=== PATIENT | female | born 1935 | race Caucasian/White ===

== ENCOUNTER 2018-02-15 15:01 | Emergency (ER) | payer OTHER ==
--- NOTE | 2018-02-15 16:03 | RAD REPORT ---
EXAM DESCRIPTION: CT - Head Brain Wo Cont - 02/15/2018 3:55 pm CLINICAL HISTORY: Headaches COMPARISON: 2012 TECHNIQUE: Computed axial tomography of the head was obtained. IV contrast was not requested. All CT scans are performed using dose optimization technique as appropriate and may include automated exposure control or mA/KV adjustment according to patient size. FINDINGS: An intracranial bleed is not seen . The ventricles are normal in caliber. No extra-axial fluid collection is noted. Mild cerebral atrophy is seen. Fluid within the sinuses/ mastoids is not seen. IMPRESSION: No acute intracranial abnormality is seen. If patient's symptoms persist MRI of the bra in would be recommended.
--- NOTE | 2018-02-15 16:05 | RAD REPORT ---
EXAM DESCRIPTION: Mary Jo Single View02/15/2018 3:53 pm CLINICAL HISTORY: Hypertension COMPARISON: 2012 FINDINGS: The left base is hazy. The remainder of the lungs appear clear. The heart is mildly enlar ged. Pacemaker leads are in place IMPRESSION: The left base is hazy which could be secondary to a small pleural effusion, infiltrate o r overlying soft tissue
[2018-02-15 16:09] LABS: Absolute Lymphocytes (CBC) 1.2 K/uL (0.7-4.9); Absolute Monocytes 0.6 K/uL (0.1-1.3); Absolute Neutrophil 7.5 K/uL (1.8-8.0); Basophils % 1.1 % (0-1.3); Eosinophils % 0.7 % (0-4.4); Hematocrit 31.8 % (36.0-45.0); Lymphocytes % 12.5 % (15.3-44.8); MCH 24.4 pg (27.0-35.0); MCV 80.3 fL (80-100); Monocytes % 6.2 % (3.3-12.3); RBC Red Blood Cell Count 3.96 M/uL (3.86-4.86)
[2018-02-15 16:34] LABS: Urine Blood NEGATIVE (NEG); Urine Glucose NEGATIVE (NEG); Urine Protein 1+ (NEG); Urine Specific Gravity 1.025 (1.005-1.030)
[2018-02-15 17:10] LABS: CKMB Creatine Kinase MB 0.9 ng/ml (0.3-4.0); Potassium 3.1 mEq/L (3.6-5.0)
[2018-02-15 17:14] LABS: Urine Bacteria <20 /HPF (<20); Urine RBC <5 /HPF (NONE SEEN)
[2018-02-15 17:15] LABS: Urine Culture Reflex Order NOT NEEDED; Urine Mucus 2+ /HPF (NONE SEEN)
[2018-02-15 17:16] LABS: Albumin 3.9 g/dL (3.2-5.5); Bilirubin Direct 0.1 mg/dL (0-0.2); Bilirubin Total 0.6 mg/dL (0.3-1.2)
--- NOTE | 2018-02-15 17:27 | EDPHYS ---
Physician Documentation [facility] Name: Monica Carpenter Age: 82 yrs Sex: Female : 1935 Arrival Date: 02/15/2018 Time: 15:04 Bed 8 Private MD: ED Physician Nehemias Hernandez HPI: 02/15 15:35 This 82 yrs old Female presents to ER via Ambulatory with complaints of cp Abnormal Lab Results. Historical: - Allergies: 15:11 Propoxyphene HCl; hj 15:11 PENICILLINS; hj 15:11 Sulfa (Sulfonamide Antibiotics); hj 15:11 Iodine; hj 15:11 Codeine; hj - Home Meds: 15:11 ranitidine HCl 75 mg Oral tab 1 tab once daily [Active]; ketotifen fumarate 0.025 % hj (0.035 %) ophthalmic drop 1 drop 2 times per day [Active]; aspirin 81 mg Oral TbEC 1 tab once daily [Active]; atorvastatin 40 mg oral tab 1 tab once daily [Active]; furosemide 40 mg Oral tab 1 tab once daily [Active]; bisacodyl 5 mg Oral TbEC 1 tab once daily [Active]; Lexapro 10 mg Oral tab 1 tab once daily [Active]; lisinopril 20 mg Oral tab 1 tab once daily [Active]; metformin 500 mg Oral tab 1 tab daily [Active]; nifedipine 60 mg Oral TbER 1 tab once daily [Active]; tramadol 50 mg Oral tab 1 tab every 6 hours [Active]; - PMHx: 15:11 Hypertension; Hyperlipidemia; Diabetes - NIDDM; hj - PSHx: 15:11 pacemaker; hj - Immunization history:: Adult Immunizations up to date. - Social history:: Smoking status: Patient/guardian denies using tobacco. Exam: 16:40 ECG was reviewed by the Attending Physician. cp Vital Signs: 15:11 BP 115 / 52; Pulse 73; Resp 18; Temp 97.4(TE); Pulse Ox 94% on R/A; Weight 104.33 kg; hj Height 5 ft. 4 in. (162.56 cm); Pain 0/10; 16:00 BP 139 / 65; Pulse 69; Resp 17; Pulse Ox 95% on R/A; tw2 17:00 BP 127 / 92; Pulse 75; Resp 16; Pulse Ox 97% on R/A; tw2 17:55 BP 129 / 77; Pulse 72; Resp 17; Pulse Ox 95% on R/A; tw2 15:11 Body Mass Index 39.48 (104.33 kg, 162.56 cm) hj MDM: 15:18 Patient medically screened. cp 02/15 15:30 Order name: Basic Metabolic Panel; Complete Time: 17:21 cp 05/08 17:21 Interpretation: Normal except: K 3.1; CL 99; GFR 68. cp 05/ 15:30 Order name: BNP; Complete Time: 16:52 cp / 15:30 Order name: CBC with Diff; Complete Time: 17:54 cp / 16:53 Interpretation: Normal except: HGB 9.7; HCT 31.8; MCV 80.3; MCH 24.4; MCHC 30.4; PLT cp 433; RDW 31.6; WATSON% 79.5; LYM% 12.5. 05/ 15:30 Order name: Ckmb; Complete Time: 17:21 cp 02/15 15:30 Order name: CPK; Complete Time: 17:21 cp 02/15 15:30 Order name: LFT's; Complete Time: 17:21 cp / 17:22 Interpretation: Reviewed. cp 02/15 15:30 Order name: Magnesium; Complete Time: 17:21 cp / 17:22 Interpretation: MG 2.0; Reviewed. cp 02/15 15:30 Order name: PT-INR; Complete Time: 16:52 cp 02/15 15:30 Order name: Ptt, Activated; Complete Time: 16:52 cp 02/15 15:30 Order name: Troponin (emerg Dept Use Only); Complete Time: 16:52 cp / 16:54 Interpretation: TROPED < 0.03; Reviewed. cp 02/15 15:30 Order name: Type And Screen; Complete Time: 16:52 cp 02/15 16:12 Order name: CBC Smear Scan; Complete Time: 17:54 EDMS 02/15 16:27 Order name: Urine Microscopic Only; Complete Time: 17:21 cp /08 17:21 Interpretation: Normal except: SQEPI 5-10. cp / 16:31 Order name: Urine Dipstick--Ancillary (enter results); Complete Time: 16:52 ag 02/15 16:53 Interpretation: Normal except: UKET 1+; UPROT 1+. 02/15 15:30 Order name: XRAY Chest (1 view); Complete Time: 16:07 02/15 15:30 Order name: EKG; Complete Time: 15:31 02/15 15:30 Order name: Cardiac monitoring; Complete Time: 15:59 02/15 15:30 Order name: EKG - Nurse/Tech; Complete Time: 16:32 02/15 15:30 Order name: IV Saline Lock; Complete Time: 15:59 02/15 15:30 Order name: Labs collected and sent; Complete Time: 15:59 02/15 15:30 Order name: O2 Per Protocol; Complete Time: 15:59 02/15 15:30 Order name: O2 Sat Monitoring; Complete Time: 15:59 02/15 15:30 Order name: Urine Dipstick-Ancillary (obtain specimen); Complete Time: 17:01 02/15 15:30 Order name: Cath; Complete Time: 16:32 02/15 15:30 Order name: CT Head Brain wo Cont; Complete Time: 16:07 02/15 16:08 Interpretation: Report reviewed. 02/15 16:45 Order name: ABO/RH no charge; Complete Time: 16:52 EDMS EC:40 Rate is 74 beats/min. Rhythm is regular. AL interval is normal. QRS interval is cp prolonged at 132 msec. QT interval is normal. No ST changes noted. Interpreted by me. Reviewed by me. Administered Medications: 17:40 Drug: Potassium Effervescent Tablet 50 mEq Route: PO; tw2 17:54 Follow up: Response: No adverse reaction tw2 Disposition: 02/16 06:57 Co-signature as Attending Physician, Nehemias Hernandez MD I agree with the assessment and joseluis plan of care. Disposition: 02/15/18 17:26 Discharged to Home. Impression: Weakness - General, Hypokalemia. - Condition is Stable. - Discharge Instructions: Potassium Content of Foods, Weakness, Hypokalemia. - Prescriptions for Potassium Chloride 10 mEq Oral Capsule, Sustained Release - take 1 tablet by ORAL route every 12 hours; 6 tablet. - Medication Reconciliation Form, Thank You Letter, Antibiotic Education, Prescription Opioid Use form. - Follow up: Private Physician; When: 1 - 2 days; Reason: Recheck today's complaints. - Problem is new. - Symptoms are unchanged. Addendum: 03/01/2018 12:52 Addendum: HPI: Patient presents to ED with c/o general weakness.. Addendum: ROS: c p Constitutional: negative for body aches, chills, fever, poor PO intake. Eyes: negative for injury, pain, redness, and discharge. ENT: negative for drainage from ear(s), ear pain, sore throat, difficulty swallowing, difficulty handling secretions. Cardiovascular: negative for chest pain, edema, palpitations. Respiratory: negative for cough, shortness of breath, wheezing. Abdomen/GI: negative for abdominal pain, diarrhea, nausea, vomiting, constipation, black/tarry stool, rectal bleeding. Back: negative for pain at rest, pain with movement, radiated pain. MS/extremity: negative for injury or acute deformity, decreased range of motion, deformity, pain, paresthesias, swelling. Skin: negative for cellulitis, rash. Neuro: positive for general weakness. negative for altered mental status, headache, loss of consciousness, syncope, near syncope. All other systems are negative.. Addendum: EXAM: Head/Face: Normocephalic, atraumatic. Eyes: Pupils equal round and reactive to light, extra-ocular motions intact. Lids and lashes normal. Conjunctiva and sclera are non-icteric and not injected. Cornea within normal limits. Periorbital areas with no swelling, redness, or edema. ENT: External ear(s): are unremarkable, Ear canal(s): are normal, clear, TMs: bulging, is not appreciated, bilaterally, dullness, bilaterally, erythema, is not appreciated, bilaterally, Nose: is normal, Mouth: normal, Lips: dry, Oral mucosa: pink and intact, moist, Posterior pharynx: Airway: no evidence of obstruction, patent, swelling, is not appreciated, erythema, is not appreciated, exudate, is not appreciated, Voice: is normal. Neck: ROM/movement: is normal, is supple, without pain, no range of motion limitations, no meningismus, no nuchal rigidity. Chest/axilla: Inspection: normal, Palpation: is normal, no crepitus, no tenderness. Cardiovascular: Rate: normal, Rhythm: regular, Pulses are 2+ in right radial artery and left radial artery. Edema: is not appreciated, JVD: is not appreciated. Respiratory: the patient does not display signs of respiratory distress, Respirations: normal, no use of accessory muscles, no retractions, no splinting, no tachypnea, labored breathing, is not present, Breath sounds: are clear throughout, no decreased breath sounds, no stridor, no wheezing. Abdomen/GI: Inspection: normal, Bowel sounds: active, all quadrants, Palpation: abdomen is soft and non-tender, in all quadrants, rebound tenderness, is not appreciated, voluntary guarding, is not appreciated, involuntary guarding, is not appreciated. Back: pain is absent. Skin: cellulitis, is not appreciated, no rash present. Neuro: Orientation: to person, place, and time. Mentation: lucid, able to follow commands, Cerebellar function: Romberg testing is negative, normal finger to nose testing, Motor: moves all fours, general weakness w/o focal deficits, Sensation: no obvious gross deficits. Addendum: ED course: VSS. Labs and radiology studies reviewed. Will discharge to home for continued monitoring. Signatures: Dispatcher [employer] EDMS Nehemias Hernandez MD MD cha Joaquin, Henry, RN RN Nehemias Hernández PA PA cp Wise, Tara, RN RN tw2 Corrections: (The following items were deleted from the chart) 02/15 17:56 17:26 02/15/2018 17:26 Discharged to Home. Impression: Weakness - General; Hypokalemia. tw2 Condition is Stable. Forms are Medication Reconciliation Form, Thank You Letter, Antibiotic Education, Prescription Opioid Use. Follow up: Private Physician; When: 1 - 2 days; Reason: Recheck today's complaints. Problem is new. Symptoms are unchanged. cp
--- NOTE | 2018-02-15 17:27 | ER ---
Nurse's Notes [facility] Name: Monica Carpenter Age: 82 yrs Sex: Female : 1935 Arrival Date: 02/15/2018 Time: 15:04 Bed 8 Private MD: Diagnosis: Weakness-General;Hypokalemia Presentation: 02/15 15:06 Presenting complaint: Patient states: pt was sent here from Dr. Bird: i have low hj blood pressure and been treated for anemia; reports feeling and clammy;. Transition of care: patient was not received from another setting of care. Onset of symptoms was February 15, 2018. Initial Sepsis Screen: Does the patient meet any 2 criteria? No. Patient's initial sepsis screen is negative. Does the patient have a suspected source of infection? No. Patient's initial sepsis screen is negative. Care prior to arrival: None. 15:06 Method Of Arrival: Ambulatory hj 15:06 Acuity: ANISA 3 hj Triage Assessment: 15:11 General: Appears in no apparent distress. uncomfortable, Behavior is calm, cooperative, hj appropriate for age. Pain: Denies pain. Historical: - Allergies: 15:11 Propoxyphene HCl; hj 15:11 PENICILLINS; hj 15:11 Sulfa (Sulfonamide Antibiotics); hj 15:11 Iodine; hj 15:11 Codeine; hj - Home Meds: 15:11 ranitidine HCl 75 mg Oral tab 1 tab once daily [Active]; ketotifen fumarate 0.025 % hj (0.035 %) ophthalmic drop 1 drop 2 times per day [Active]; aspirin 81 mg Oral TbEC 1 tab once daily [Active]; atorvastatin 40 mg oral tab 1 tab once daily [Active]; furosemide 40 mg Oral tab 1 tab once daily [Active]; bisacodyl 5 mg Oral TbEC 1 tab once daily [Active]; Lexapro 10 mg Oral tab 1 tab once daily [Active]; lisinopril 20 mg Oral tab 1 tab once daily [Active]; metformin 500 mg Oral tab 1 tab daily [Active]; nifedipine 60 mg Oral TbER 1 tab once daily [Active]; tramadol 50 mg Oral tab 1 tab every 6 hours [Active]; - PMHx: 15:11 Hypertension; Hyperlipidemia; Diabetes - NIDDM; hj - PSHx: 15:11 pacemaker; hj - Immunization history:: Adult Immunizations up to date. - Social history:: Smoking status: Patient/guardian denies using tobacco. Screenin:57 Abuse screen: Denies threats or abuse. Nutritional screening: No deficits noted. tw2 Tuberculosis screening: No symptoms or risk factors identified. Fall Risk None identified. Assessment: 15:20 General: Appears in no apparent distress. obese, Behavior is calm, cooperative, tw2 appropriate for age. Pain: Denies pain. Neuro: Level of Consciousness is awake, alert, obeys commands, Oriented to person, place, time, situation. Cardiovascular: Denies chest pain, shortness of breath, Heart tones S1 S2 Capillary refill < 3 seconds Patient's skin is warm and dry. Respiratory: Airway is patent Respiratory effort is even, unlabored, Respiratory pattern is regular, symmetrical. GI: Abdomen is round obese, Bowel sounds present X 4 quads. Reports nausea. : No signs and/or symptoms were reported regarding the genitourinary system. EENT: No signs and/or symptoms were reported regarding the EENT system. Derm: Skin is intact, is fragile, is thin, Skin temperature is warm. Musculoskeletal: Reports weakness in "all over tired since my UTI". 16:00 Reassessment: Patient appears in no apparent distress at this time. No changes from tw2 previously documented assessment. Patient and/or family updated on plan of care and expected duration. Pain level reassessed. Patient is alert, oriented x 3, equal unlabored respirations, skin warm/dry/pink. 16:59 Reassessment: JAMES Souza at bedside at this time. Reassessment: Patient appears in no tw2 apparent distress at this time. No changes from previously documented assessment. Patient and/or family updated on plan of care and expected duration. Pain level reassessed. Patient is alert, oriented x 3, equal unlabored respirations, skin warm/dry/pink. 17:55 Reassessment: Patient appears in no apparent distress at this time. No changes from tw2 previously documented assessment. Patient and/or family updated on plan of care and expected duration. Pain level reassessed. Patient is alert, oriented x 3, equal unlabored respirations, skin warm/dry/pink. Vital Signs: 15:11 BP 115 / 52; Pulse 73; Resp 18; Temp 97.4(TE); Pulse Ox 94% on R/A; Weight 104.33 kg; hj Height 5 ft. 4 in. (162.56 cm); Pain 0/10; 16:00 BP 139 / 65; Pulse 69; Resp 17; Pulse Ox 95% on R/A; tw2 17:00 BP 127 / 92; Pulse 75; Resp 16; Pulse Ox 97% on R/A; tw2 17:55 BP 129 / 77; Pulse 72; Resp 17; Pulse Ox 95% on R/A; tw2 15:11 Body Mass Index 39.48 (104.33 kg, 162.56 cm) ED Course: 15:04 Patient arrived in ED. sb2 15:07 Triage completed. hj 15:11 Arm band placed on right wrist. hj 15:17 Nehemias Hernández PA is PHCP. cp 15:17 Nehemias Hernandez MD is Attending Physician. cp 15:17 Maira Javed, ERIC is Primary Nurse. tw2 15:18 Bed in low position. Call light in reach. Side rails up X2. residential monitor on. Pulse tw2 ox on. NIBP on. 15:30 Missed attempt(s): 22 gauge in right antecubital area. Bleeding controlled, band aid tw2 applied, catheter tip intact. Missed attempt(s): 22 gauge in left antecubital area. Bleeding controlled, band aid applied, catheter tip intact. 15:35 Inserted saline lock: 22 gauge in left antecubital area, using aseptic technique. Blood tw2 collected. 15:52 X-ray completed. Portable x-ray completed in exam room. Patient tolerated procedure ml well. 15:53 XRAY Chest (1 view) In Process Unspecified. EDMS 15:55 CT Head Brain wo Cont In Process Unspecified. EDMS 16:25 Straight cath inserted, using sterile technique, 18 Fr. Specimen obtained. scant amt of tw2 specimen obtained. 17:01 No provider procedures requiring assistance completed. tw2 17:55 IV discontinued, intact, bleeding controlled, No redness/swelling at site. Pressure tw2 dressing applied. Administered Medications: 17:40 Drug: Potassium Effervescent Tablet 50 mEq Route: PO; tw2 17:54 Follow up: Response: No adverse reaction tw2 Outcome: 17:26 Discharge ordered by . cp 17:55 Discharged to home via wheelchair, with family. tw2 17:55 Condition: stable 17:55 Discharge instructions given to patient, family, Instructed on discharge instructions, follow up and referral plans. medication usage, Demonstrated understanding of instructions, follow-up care, medications, Prescriptions given X 1. 17:56 Patient left the ED. tw2 Signatures: Dispatcher [employer] EDMS aDksha Smalls, Maria L Jackson RN, Henry, RN RN hj Page, Corey, PA PA cp Wise, Tara, RN RN tw2 Dahlia Ortiz sb2 Corrections: (The following items were deleted from the chart) 15:14 15:11 Pulse 73bpm; Resp 18bpm; Pulse Ox 94% RA; Temp 97.4F Temporal; 104.33 kg; Height hj 5 ft. 4 in.; BMI: 39.4; Pain 0/10; hj 15:15 15:11 Pulse 73bpm; Resp 18bpm; Pulse Ox 94% RA; Temp 97.4F Temporal; 104.33 kg; Height hj 5 ft. 4 in.; BMI: 39.4; Pain 0/10; hj
[2018-02-15] MEDS ORDERED: POTASSIUM 25 MEQ EFFERV TAB ONE (17:40)
[2018-02-15 17:49] LABS: Platelet Estimate INCR; Urine White Blood Cell Casts OK
[2018-02-15 17:50] LABS: Anisocytosis 3+; Blood Morphology Comment NOTED (NOT SEEN)
[2018-02-15 17:59] VITALS: TEMP 97.4
[2018-02-15 18:03] VITALS: BP 129/77; O2SAT 95
--- NOTE | 2018-02-16 06:57 | EKG ---
Test Date: 2018-02-15 Test Time: 16:35:36 Publications Designer: JULIENNE MEASUREMENT RESULTS: Intervals: Rate: 74 RI: 150 QRSD: 132 QT: 450 QTc: 499 Sweet: P: 15 RI: 150 QRS: 5 T: 54 INTERPRETIVE STATEMENTS: Atrial-sensed ventricular-paced rhythm Abnormal ECG Compared to ECG 05/02/2013 15:14:51 AV dual-paced complex(es) or rhythm no longer present Sinus rhythm no longer present Electronically Signed On 02-16-18 06:57:25 CDT by Ashvin Miranda
== END 2018-02-15 17:56 | disposition home or self-care (01) ==
LOC: ER 15:01
DX: E87.6 Hypokalemia (principal); R53.1 Weakness; I10 Essential (primary) hypertension; E11.9 Type 2 diabetes mellitus without complications; E78.5 Hyperlipidemia, unspecified; Z79.82 Long term (current) use of aspirin; Z88.0 Allergy status to penicillin; Z88.2 Allergy status to sulfonamides; Z88.5 Allergy status to narcotic agent; Z88.8 Allergy status to other drugs, medicaments and biological substances; Z91.048 Other nonmedicinal substance allergy status; Z95.0 Presence of cardiac pacemaker
CPT/HCPCS: 36415; 51702; 70450; 71045; 80048; 80076; 81003; 81015; 82550; 82553; 83735; 83880; 84484; 85025; 85610; 85730; 86850; 86900; 86901; 93005; 99284